=== PATIENT | male | born 1990 | race Hispanic/Latino ===

== ENCOUNTER 2018-06-13 22:07 | Emergency (ER) | payer SELFPAY ==
[2018-06-13 22:52] LABS: Anisocytosis SLIGHT = 6-15 cells (100X) (0-5/hpf); Band 2 % (5-11); Eosinophils 1 % (0-10); Hemoglobin 8.5 g/dL (14.0-18.0); Lymphocytes 37 % (21-51); MDiff Complete? YES; Mean Corpuscular HGB CONC 31.6 g/dL (32.0-36.0); Mean Corpuscular Hemoglobin 31.7 pg (27.0-31.0); Mean Platelet Volume 10.2 fL (7.4-10.4); Monocytes 17 % (0-10); Neutrophil 41 % (42-75); Nucleated RBC 1 % (0); Ovalocytes SLIGHT = 2-5 cells (100X) (0-1/hpf); Platelet Count 88 thou/uL (130-400); Platelet Morphology Comment Appears Decreased; RBC Distribution Width 15.6 % (11.5-14.5); White Blood Cell (WBC) Count 2.7 thou/uL (4.8-10.8)
[2018-06-13 22:54] LABS: ALT (SGPT) Less than 7 U/L (8-55); AST (SGOT) 25 U/L (5-34); Acetaminophen Less than 6.0 mcg/mL (10.0-30.0); Albumin 4.3 g/dL (3.5-5.0); Alcohol Less than 10 mg/dL (Less than 10); Alkaline Phosphatase 69 U/L (40-150); Anion Gap 11 mmol/L (10-20); BUN (Urea Nitrogen) 6 mg/dL (8.9-20.6); Bilirubin, Total 0.6 mg/dL (0.2-1.2); Calc. Creatinine Clearance 0 mL/min (70-130); Calcium 8.8 mg/dL (7.8-10.44); Carbon Dioxide 23 mmol/L (22-29); Chloride 107 mmol/L (98-107); Estimated GFR-MDRD Greater than 90; Globulin 1.9 g/dL (2.4-3.5); Glucose 93 mg/dL (70-105); Potassium 3.2 mmol/L (3.5-5.1); Protein, Total 6.2 g/dL (6.0-8.3); Salicylate Less than 8.0 mg/dL (15.0-30.0); Sodium 138 mmol/L (136-145)
== END 2018-06-13 23:54 | disposition home or self-care (01) ==
LOC: ERS 22:07
DX: T42.4X1A Poisoning by benzodiazepines, accidental (unintentional), initial encounter (principal)
CPT/HCPCS: 36415; 80053; 80307; 85025; 93005; 96360

== ENCOUNTER 2020-08-15 01:18 | Emergency (ER) | payer SELFPAY ==
[2020-08-15 02:34] LABS: Hemoglobin 8.5 g/dL (14.0-18.0); Mean Corpuscular HGB CONC 33.4 g/dL (32.0-36.0); Mean Corpuscular Hemoglobin 34.2 pg (27.0-31.0); Red Blood Cell (RBC) Count 2.49 mill/uL (4.70-6.10); White Blood Cell (WBC) Count 3.5 thou/uL (4.8-10.8)
[2020-08-15 02:41] LABS: ALT (SGPT) 8 U/L (8-55); AST (SGOT) 35 U/L (5-34); Albumin 4.1 g/dL (3.5-5.0); Alkaline Phosphatase 83 U/L (40-110); Anion Gap 15 mmol/L (10-20); BUN (Urea Nitrogen) 8 mg/dL (8.9-20.6); Calc. Creatinine Clearance 0 mL/min (70-130); Calcium 8.6 mg/dL (7.8-10.44); Carbon Dioxide 21 mmol/L (22-29); Chloride 105 mmol/L (98-107); Globulin 2.5 g/dL (2.4-3.5); Glucose 120 mg/dL (70-105); Protein, Total 6.6 g/dL (6.0-8.3); Sodium 138 mmol/L (136-145)
[2020-08-15 02:46] LABS: Potassium 2.9 mmol/L (3.5-5.1)
[2020-08-15] MEDS ORDERED: Potassium Chloride 20 MEQ TAB ONE (02:53)
[2020-08-15 03:08] LABS: Band 2 % (5-11); Eosinophils 2 % (0-10); Hypochromia SLIGHT = 6-15 cells (100X) (0-5/hpf); Lymphocytes 30 % (21-51); MDiff Complete? YES; Mean Platelet Volume 9.7 fL (7.4-10.4); Monocytes 12 % (0-10); Neutrophil 54 % (42-75); Nucleated RBC 1 % (0); Platelet Count 111 thou/uL (130-400); Platelet Morphology Comment Appears Decreased; RBC Distribution Width 17.2 % (11.5-14.5)
== END 2020-08-15 04:19 | disposition home or self-care (01) ==
LOC: ERS 01:18
DX: F10.10 Alcohol abuse, uncomplicated (principal); D64.9 Anemia, unspecified; E87.6 Hypokalemia; F15.10 Other stimulant abuse, uncomplicated; F14.10 Cocaine abuse, uncomplicated; F17.210 Nicotine dependence, cigarettes, uncomplicated
CPT/HCPCS: 36415; 80053; 85025; 99285

== ENCOUNTER 2023-10-25 12:43 | Inpatient (IN) | payer SELFPAY ==
[~2023-10-25 12:43] MED LIST: Iopamidol-370 76% 500 ML MDV (1 ML CHARGE) ONE
[2023-10-25] MEDS ORDERED: Morphine 4 MG/ML VIAL ONE (13:52)
[2023-10-25] MEDS ORDERED: Ondansetron PF 4 MG/2 ML Vial ONE (13:53)
[2023-10-25 14:26] LABS: ALT (SGPT) 23 U/L (8-55); AST (SGOT) 29 U/L (5-34); Albumin 3.4 g/dL (3.5-5.0); Alkaline Phosphatase 75 U/L (40-110); Anion Gap 13 mmol/L (10-20); BUN (Urea Nitrogen) 7 mg/dL (8.9-20.6); CK (CPK) 41 U/L (30-200); Calc. Creatinine Clearance 0 mL/min (70-130); Calcium 8.6 mg/dL (7.8-10.44); Carbon Dioxide 21 mmol/L (22-29); Chloride 107 mmol/L (98-107); Estimated GFR 130; Globulin 2.8 g/dL (2.4-3.5); Glucose 99 mg/dL (70-105); Lipase 14 U/L (8-78); Potassium 3.6 mmol/L (3.5-5.1); Protein, Total 6.2 g/dL (6.0-8.3); Sodium 137 mmol/L (136-145)
[2023-10-25 14:30] LABS: Hematocrit 16.9 % (42.0-52.0); Hemoglobin 5.5 g/dL (14.0-18.0); Mean Corpuscular HGB CONC 32.5 g/dL (32.0-36.0); Mean Corpuscular Hemoglobin 30.2 pg (27.0-31.0); Mean Corpuscular Volume 92.9 fL (78.0-98.0); Mean Platelet Volume 12.5 fL (7.4-10.4); Platelet Count 66 10x3/uL (130-400); RBC Distribution Width 14.8 % (11.5-14.5); Red Blood Cell (RBC) Count 1.82 mill/uL (4.70-6.10); Troponin I 0.069 ng/mL (< 0.028)
[2023-10-25 14:32] LABS: #Basophils Less than 0.03 10x3/uL (0.0-0.2); %Basophils 0.2 % (0.0-1.0); %Eosinophils 1.5 % (0.0-10.0); %Lymphocytes 6.7 % (21.0-51.0); %Monocytes 9.6 % (0.0-10.0); %Neutrophils 79.4 % (42.0-75.0)
[2023-10-25] MEDS ORDERED: Electrolyte Replacement Protocol 1 EACH FS SCH (17:15)
[2023-10-25 17:59] LABS: Magnesium 2.1 mg/dL (1.6-2.6)
[2023-10-25] MEDS ORDERED: metroNIDAZOLE 500 MG (100 mL) BAG ONE (17:59)
[2023-10-25 18:00] LABS: Iron 52 ug/dL (65-175); Iron Binding Capacity, Total 251 mcg/dL (261-462)
[2023-10-25 18:22] LABS: HBCM Index 0.14 S/CO (0-0.79); HBsAg Index 0.28 S/CO (0-0.99); HIV (1/2) Antibody/Antigen NONREACTIVE (NonReactive); HIV 1/2 INDEX 0.07 S/CO (<1.00); Hep A IgM AB NONREACTIVE (NonReactive); Hep B Surf Ag NONREACTIVE S/CO (NonReactive); Hep C IgG Ab NONREACTIVE S/CO (NonReactive); Hepatitis B Core IgM Abs NONREACTIVE S/CO (NonReactive); Thyroid Stimulating Hormone 0.5878 uIU/mL (0.35-4.94)
[2023-10-25] MEDS ORDERED: LevoFLOXacin 750 mg/D5W 150 ml Premix Bag ONE (18:36)
[2023-10-25 19:07] LABS: Platelet Adequacy Comment Platelets Decreased; Polychromasia SLIGHT = 2-3 cells HPF (0-2)
[2023-10-25 20:29] VITALS: BMI 24.0
[2023-10-25 20:49] LABS: Troponin I 0.094 ng/mL (< 0.028)
[2023-10-25] MEDS: Nicotine 14 MG PATCH TD SCH (21:12)
[2023-10-25] MEDS: Acetaminophen 500 MG TAB PO PRN (21:12)
[2023-10-25] MEDS: Multivit, Therapeutic 1 TAB PO SCH (21:13)
[2023-10-25] MEDS: Folic Acid 1 MG TAB PO SCH (21:13)
[2023-10-25] MEDS: Thiamine HCl 200 MG/2 ML VIAL SLOW IVP SCH (21:14)
[2023-10-25] MEDS: Morphine 4 MG/ML VIAL SLOW IVP PRN (23:32)
[2023-10-25 23:52] LABS: Troponin I 0.134 ng/mL (< 0.028)
[2023-10-26] MEDS: metroNIDAZOLE 500 MG in Premix 1 BAG IVPB SCH (01:52)
[2023-10-26] MEDS: Morphine 4 MG/ML VIAL SLOW IVP SCH (02:28)
[2023-10-26] MEDS: Sucralfate 1 GM/10 ML UDCUP PO SCH (02:29)
[2023-10-26] MEDS: Ondansetron ODT 4 MG TAB PO PRN (07:33)
[2023-10-26] MEDS: Sucralfate 1 GM TAB PO SCH (08:03)
[2023-10-26] MEDS: Folic Acid 1 MG TAB PO SCH (08:04)
[2023-10-26] MEDS: Pantoprazole DR 40 MG TAB PO SCH (08:04)
[2023-10-26] MEDS: Multivit, Therapeutic 1 TAB PO SCH (08:04)
[2023-10-26 08:31] LABS: Bacteria/HPF None Seen HPF (None Seen); Bilirubin Negative (Negative); Blood, Urine 1+ (Negative); Clarity Clear (Clear); Glucose, Urine (Dipstick) Normal (Negative); Ketone, Urine Negative (Negative); Leukocyte Negative Leu/uL (Negative); Mucous/LPF 1+ LPF (<2+); Nitrite Negative (Negative); Protein, Urine (Dipstick) 50 mg/dL (Neg-Trace); RBC/HPF 0-3 HPF (0-3); Specific Gravity, Urine 1.018 (1.002-1.036); Squamous Epithelial None Seen HPF (0-3); Urobilinogen Normal mg/dL (Less than 2); WBC/HPF 0-3 HPF (0-3)
[2023-10-26] MEDS ORDERED: Polyethylene Glycol 3350 17 GM Packet PO PRN (09:48)
[2023-10-26 10:00] LABS: Anion Gap 13 mmol/L (10-20); BUN (Urea Nitrogen) 7 mg/dL (8.9-20.6); Calc. Creatinine Clearance 172 mL/min (70-130); Calcium 8.1 mg/dL (7.8-10.44); Carbon Dioxide 19 mmol/L (22-29); Chloride 106 mmol/L (98-107); Estimated GFR 134; Glucose 109 mg/dL (70-105); Sodium 134 mmol/L (136-145)
[2023-10-26 10:02] LABS: Troponin I 0.106 ng/mL (< 0.028)
[2023-10-26 10:10] LABS: #Basophils 0.03 10x3/uL (0.0-0.2); #Eosinphils Less than 0.03 10x3/uL (0.0-0.7); %Basophils 0.3 % (0.0-1.0); %Eosinophils 0.1 % (0.0-10.0); %Lymphocytes 3.9 % (21.0-51.0); %Monocytes 10.3 % (0.0-10.0); %Neutrophils 84.6 % (42.0-75.0); Hematocrit 24.9 % (42.0-52.0); Mean Corpuscular HGB CONC 32.1 g/dL (32.0-36.0); Mean Corpuscular Hemoglobin 31.1 pg (27.0-31.0); Mean Corpuscular Volume 96.9 fL (78.0-98.0); Platelet Count 33 10x3/uL (130-400); RBC Distribution Width 15.4 % (11.5-14.5); Red Blood Cell (RBC) Count 2.57 mill/uL (4.70-6.10)
[2023-10-26] MEDS ORDERED: Electrolyte Replacement Protocol FS PRN (10:45)
[2023-10-26 13:33] LABS: Campy jejuni + coli by PCR Negative (Negative); STEC Shiga Toxin 1+2 Negative (Negative); Salmonella spp. by PCR Negative (Negative); Shigella spp + EIEC by PCR Negative (Negative)
[2023-10-26 14:28] LABS: Amphetamine Not Detected (NotDetected); Barbiturates Screen Not Detected (NotDetected); Benzodiazepine Screen Not Detected (NotDetected); Cocaine Metabolite Screen Not Detected (NotDetected); Methadone Not Detected (NotDetected); Methamphetamine Not Detected (NotDetected); Opiate Screen Detected (NotDetected); Oxycodone Screen Not Detected (NotDetected); Phencyclidine (PCP) Not Detected (NotDetected); THC/Cannabinoid Screen Detected (NotDetected); Tricyclic Screen Not Detected (NotDetected)
[2023-10-26 18:15] LABS: #Basophils Less than 0.03 10x3/uL (0.0-0.2); #Eosinphils Less than 0.03 10x3/uL (0.0-0.7); %Basophils 0.2 % (0.0-1.0); %Lymphocytes 3.8 % (21.0-51.0); %Monocytes 8.1 % (0.0-10.0); %Neutrophils 86.8 % (42.0-75.0); Hematocrit 26.1 % (42.0-52.0); Hemoglobin 8.7 g/dL (14.0-18.0); Mean Corpuscular HGB CONC 33.3 g/dL (32.0-36.0); Mean Corpuscular Hemoglobin 31.4 pg (27.0-31.0); Mean Corpuscular Volume 94.2 fL (78.0-98.0); Platelet Count 24 10x3/uL (130-400); RBC Distribution Width 15.1 % (11.5-14.5); Red Blood Cell (RBC) Count 2.77 mill/uL (4.70-6.10)
[2023-10-26 18:20] LABS: INR-International Normal Ratio 1.3; Prothrombin Time 16.4 sec (12.0-14.7)
[2023-10-26 18:21] LABS: Fibrinogen 274 mg/dL (253-463); PTT 35.4 sec (22.9-36.1)
[2023-10-26 18:37] LABS: D-Dimer Test Greater than 20.00 mcg/mL (0.27-0.43)
[2023-10-26] MEDS ORDERED: methylPREDNISolone Sod Succ/PF 125 MG/2 ML VIAL IVP SCH (19:30)
[2023-10-26] MEDS ORDERED: methylPREDNISolone Sod Succ/PF 250 MG, Admixture Fee 1 EACH in Sodium Chloride 0.9% 100 ML IVP SCH (19:30)
[2023-10-26] MEDS: methylPREDNISolone Sod Succ/PF 250 MG, Admixture Fee 1 EACH in Sodium Chloride 0.9% 100 ML IVPB SCH (21:10)
[2023-10-26] MEDS: Ondansetron PF 4 MG/2 ML Vial IVP PRN (21:15)
[2023-10-26 21:44] LABS: Bilirubin, Direct 0.4 mg/dL (0.1-0.3); Bilirubin, Total 0.9 mg/dL (0.2-1.2)
[2023-10-26] MEDS: Phytonadione 5 MG TAB PO SCH (21:53)
[2023-10-26] MEDS ORDERED: Lorazepam 2 MG/ML VIAL IM PRN (23:58)
[2023-10-26] MEDS ORDERED: Lorazepam 1 MG TAB PO PRN (23:58)
[2023-10-27 00:16] VITALS: BP 120/92
[2023-10-27] MEDS: Lorazepam 1 MG TAB PO SCH ×2 (00:28→06:32)
[2023-10-27 06:35] LABS: Hematocrit 26.9 % (42.0-52.0); Hemoglobin 8.9 g/dL (14.0-18.0); Mean Corpuscular HGB CONC 33.1 g/dL (32.0-36.0); Mean Corpuscular Hemoglobin 30.7 pg (27.0-31.0); Mean Corpuscular Volume 92.8 fL (78.0-98.0); Platelet Count 26 10x3/uL (130-400); RBC Distribution Width 15.1 % (11.5-14.5)
[2023-10-27 07:03] LABS: Band 3 % (5-11); Lymphocytes 1 % (21-51); Monocytes 2 % (0-10); Neutrophil 94 % (42-75); Nucleated RBC (Manual Ct) 1 % (0); Platelet Adequacy Comment Significant Decrease; Polychromasia SLIGHT = 2-3 cells HPF (0-2); Smudge Cells 5.9 %
[2023-10-27 07:14] LABS: Anion Gap 18 mmol/L (10-20); BUN (Urea Nitrogen) 12 mg/dL (8.9-20.6); Calc. Creatinine Clearance 161 mL/min (70-130); Carbon Dioxide 18 mmol/L (22-29); Chloride 101 mmol/L (98-107); Estimated GFR 131; Glucose 134 mg/dL (70-105); Potassium 3.7 mmol/L (3.5-5.1); Sodium 133 mmol/L (136-145)
[2023-10-27] MEDS ORDERED: methylPREDNISolone Sod Succ/PF 125 MG/2 ML VIAL IVP SCH (09:00)
[2023-10-27] MEDS: Pantoprazole 40 MG VIAL IVP SCH (09:14)
[2023-10-27] MEDS: chlordiazePOXIDE HCl 25 MG CAP PO SCH (09:14)
[2023-10-27] MEDS: methylPREDNISolone Sod Succ/PF 125 MG/2 ML VIAL IVP SCH (09:15)
[2023-10-27] MEDS: Morphine 2 MG/ML VIAL SLOW IVP SCH (12:05)
[2023-10-27] MEDS: methylPREDNISolone Sod Succ 0.75 GM in Sodium Chloride 0.9% 250 ML 250 ML IVPB SCH (12:09)
[2023-10-27 13:17] LABS: ANA Symphony (Qualitative) Negative (Negative); ANA Symphony (Quantitative) 0.1 Ratio (< 0.7 Negative); dsDNA IgG Antibody 2.3 IU/mL (<10 Negative)
[2023-10-27 13:36] LABS: Syphilis Antibody Nonreactive (Nonreactive); Syphilis Antibody Index 0.06 S/CO (<1.00 Non-Reactive)
[2023-10-27] MEDS: Morphine 4 MG/ML VIAL SLOW IVP SCH (14:24)
[2023-10-27 16:34] LABS: Hemoglobin 7.6 g/dL (14.0-18.0); Mean Corpuscular Hemoglobin 31.4 pg (27.0-31.0); Platelet Count 22 10x3/uL (130-400); RBC Distribution Width 15.3 % (11.5-14.5); Red Blood Cell (RBC) Count 2.42 mill/uL (4.70-6.10)
[2023-10-27 17:15] LABS: Band 29 % (5-11); Large Platelets 3.9 % (0-5); Lymphocytes 1 % (21-51); Neutrophil 68 % (42-75); Ovalocytes SLIGHT = 2-5 cells HPF (0-1); Platelet Adequacy Comment Significant Decrease; Polychromasia SLIGHT = 2-3 cells HPF (0-2); Schistocytes SLIGHT = 2-5 cells HPF (0-1)
[2023-10-27] MEDS: Thiamine HCl 200 MG/2 ML VIAL SLOW IVP SCH (18:39)
[2023-10-27] MEDS ORDERED: Lorazepam 1 MG TAB PO PRN (23:58)
[2023-10-28 00:02] VITALS: TEMP 98.5
[2023-10-28] MEDS: Morphine 4 MG/ML VIAL SLOW IVP PRN (01:37)
[2023-10-28] MEDS ORDERED: methylPREDNISolone Sod Succ 1 GM in Sodium Chloride 0.9% 250 ML 250 ML IVPB SCH (09:00)
[2023-10-28] MEDS ORDERED: Thiamine 100 MG TAB PO SCH (18:00)
[2023-10-28] MEDS ORDERED: Lorazepam 1 MG TAB PO PRN (23:58)
[2023-10-28] MEDS ORDERED: Lorazepam 0.5 MG TAB PO SCH (23:59)
[2023-10-29 14:18] LABS: Parvovirus B19 IgG ABS 1.7 index (0.0-0.8); Parvovirus B19 IgM ABS 10.5 index (0.0-0.8)
[2023-10-29 20:37] LABS: Cytoplasmic (C-ANCA) <1:20 titer (Neg:<1:20); Myeloperoxidase AutoAbs <0.2 units (0.0-0.9); Perinuclear (P-ANCA) <1:20 titer (Neg:<1:20); Proteinase-3 AutoAbs Less than 0.2 units (0.0-0.9)
[2023-10-29] MEDS ORDERED: Lorazepam 0.5 MG TAB PO PRN (23:58)
== END 2023-10-28 03:20 | disposition short-term general hospital (02) | DRG 811 ==
LOC: ERS 12:43 → MSONC 17:10 → UNDODISIN 10-26 18:30 → IMCU/EMU 10-26 20:36
PROVIDERS: ADMIT Family Medicine; ATTEND Family Medicine
PROC: 30233N1 Transfusion of Nonautologous Red Blood Cells into Peripheral Vein, Percutaneous Approach (ICD-10-PCS; principal; 2023-10-25)
DX: D64.9 Anemia, unspecified (principal); E43 Unspecified severe protein-calorie malnutrition; J18.9 Pneumonia, unspecified organism; A08.4 Viral intestinal infection, unspecified; F17.210 Nicotine dependence, cigarettes, uncomplicated; F10.10 Alcohol abuse, uncomplicated; K52.9 Noninfective gastroenteritis and colitis, unspecified; R16.1 Splenomegaly, not elsewhere classified; D69.2 Other nonthrombocytopenic purpura; I77.6 Arteritis, unspecified; Z68.24 Body mass index [BMI] 24.0-24.9, adult
CPT/HCPCS: 36415; 36416; 36430; 71045; 74177; 76705; 80048; 80053; 80074; 80306; 81003; 81015; 82180; 82247; 82248; 82274; 82550; 82607; 82728; 83010; 83516; 83540; 83550; 83615; 83690; 83735; 84100; 84145; 84443; 84484; 85025; 85046; 85060; 85379; 85384; 85610; 85730; 86037; 86038; 86141; 86225; 86644; 86747; 86780; 86850; 86900; 86901; 87040; 87086; 87389; 87505; 87798; 93005; 93010; 93923; 93970; 96365; 96368; 96374; 96375; C9113; J1956; J2270; J2272; J2405; J2930; J3411; J3490; J7050; P9016; P9035; P9059; Q0162; Q9967